=== PATIENT | female | born 1975 | race Caucasian/White ===

== ENCOUNTER → 2022-09-02 | Day surgery (SDC) | payer OTHER | END | disposition home or self-care (01) | LOC: FMAMMOTONE 08:15 | PROVIDERS: ATTEND Surgery | PROC: 0HBU3ZX Excision of Left Breast, Percutaneous Approach, Diagnostic (ICD-10-PCS; principal; 2022-09-02) | DX: N60.12 Diffuse cystic mastopathy of left breast (principal); N64.89 Other specified disorders of breast; R92.1 Mammographic calcification found on diagnostic imaging of breast | CPT/HCPCS: 19081; 76098-TC-FY; 87899; 88305-TC; A4648 ==

== ENCOUNTER 2023-01-11 18:38 | Emergency (ER) | payer OTHER ==
[2023-01-11 18:46] VITALS: BP 139/93; PULSE 67; RESP 20; TEMP 97.7; BMI 25.6
[2023-01-11] MEDS ORDERED: SODIUM CHLORIDE 0.9% 500 ML INFUS.BAG IV ONE (20:13)
[2023-01-11] MEDS ORDERED: ALBUTEROL SO4 2.5/IPRATROPIUM 0.5 INH SOL 3 ML VIAL.NEB. NEB ONE ×3 (20:13→20:43)
[2023-01-11] MEDS ORDERED: HYDROCORTISONE SOD SUCCINATE 100 MG/2 ML VIAL IVPB ONE (20:13)
[2023-01-11] MEDS ORDERED: MAGNESIUM SULF 50% (8.12 MEQ/2 ML-1 GM VIAL) IVPB ONE (20:13)
[2023-01-11] MEDS ORDERED: MAGNESIUM 1GM/D5W - 1 GM/100 ML IVPB IVPB ONE ×2 (20:30→21:23)
[2023-01-11] MEDS ORDERED: HYDROCORTISONE SOD SUCCINATE 100 MG/2 ML VIAL ONE (20:30)
[2023-01-11 20:40] LABS: HEMATOCRIT 32.5 % (32.4-45.2); HEMOGLOBIN 10.8 G/dL (10.7-15.3); MCH 27.7 pg (25.7-33.7); MCHC 33.4 g/dl (32.0-36.0); MEAN CELL VOLUME 83.1 fl (80-96); MEAN PLT VOLUME 10.4 fl (7.5-11.1); PLATELET COUNT 216.5 10^3/uL (134-434); RBC 3.91 10^6/uL (3.60-5.2); RDW 16.4 % (11.6-15.6); WHITE BLOOD COUNT 10.9 10^3/uL (4.0-10.8)
[2023-01-11 20:48] LABS: ALBUMIN 3.8 g/dl (3.4-5.0); ALK PHOS 128 U/L (45-117); ANION GAP 7 MMOL/L (8-16); BILIRUBIN,TOTAL 1.1 mg/dl (0.2-1); CALCIUM 9.3 mg/dl (8.5-10); CHLORIDE 105 mmol/L (98-107); CO2 22 mmol/L (21-32); CREATININE 0.7 mg/dl (0.55-1.3); GLUCOSE,RANDOM 82 mg/dl (74-106); SGOT/AST 38 U/L (15-37); SGPT/ALT 45 U/L (13-61); SODIUM 134 mmol/L (136-145); TOT PROT 7.2 g/dl (6.4-8.2)
[2023-01-11 21:01] LABS: PLATELET ESTIMATE ADEQUATE
== END 2023-01-11 22:07 | disposition home or self-care (01) ==
LOC: FER 18:38
PROC: 3E0F7GC Introduction of Other Therapeutic Substance into Respiratory Tract, Via Natural or Artificial Opening (ICD-10-PCS; principal; 2023-01-11)
PROC: 3E033GC Introduction of Other Therapeutic Substance into Peripheral Vein, Percutaneous Approach (ICD-10-PCS; 2023-01-11)
PROC: 3E033GC Introduction of Other Therapeutic Substance into Peripheral Vein, Percutaneous Approach (ICD-10-PCS; 2023-01-11)
DX: U07.1 COVID-19 (principal); R06.02 Shortness of breath; R05.1 Acute cough; J06.9 Acute upper respiratory infection, unspecified
CPT/HCPCS: 0241U-QW; 36415; 71046-TC-FY; 80053; 84484; 85027; 93005; 99285-25